=== PATIENT | male | born 1945 | race Caucasian/White ===

== ENCOUNTER 2023-09-15 16:25 | Emergency (ER) | payer MEDICARE ==
[2023-09-15 16:42] VITALS: RESP 18; TEMP 98.5
[2023-09-15] MEDS ORDERED: TORAdol 30 mg Injection ONE (16:49)
[2023-09-15] MEDS: TORAdol 30 mg Injection IM ONE (16:51)
--- NOTE | 2023-09-15 18:23 | ERPHSYRPT ---
- History of Present Illness Source: patient, other (Spouse) Exam Limitations: no limitations Patient Subjective Stated Complaint: C/O intermittent right hip pain for a few weeks. Denies falls or injury. Triage Nursing Assessment: Patient ambulated back to ER with a walker. He is alert and oriented. NO SOB. Skin tone normal. Some BLE edema present. Physician History: 78-year-old male with intermittent right hip pain x 2 to 3 weeks. Patient denies injury. He saw his PCP was started on tramadol for the pain but is worse today. The pain increased today when he was getting up off the toilet. He denies fever, dysuria, and hematuria. Timing/Duration: other ( 2 to 3 weeks worse to the) Context: unknown Hip Pain Location: hip (R) Severity of Pain-Max: moderate Severity of Pain-Current: moderate Modifying Factors: Improves With: movement ( movement and weight-bear) Symptoms prior to fall: other ( right hip pain) Associated Symptoms: denies symptoms Allergies/Adverse Reactions: Penicillins Allergy (Verified 09/15/23 16:31) Sulfa (Sulfonamide Antibiotics) Allergy (Verified 09/15/23 16:31) Hx Tetanus, Diphtheria Vaccination/Date Given: Yes Hx Influenza Vaccination/Date Given: Yes Hx Pneumococcal Vaccination/Date Given: Yes Immunizations Up to Date: Yes Travel Risk - International Travel Have you traveled outside of the country in past 3 weeks: No - Emerging Infectious Disease Are you exhibiting symptoms associated with any current EIDs: No - Review of Systems Constitutional: No Symptoms Eyes: No Symptoms Ears, Nose, & Throat: No Symptoms Respiratory: No Symptoms Cardiac: No Symptoms Abdominal/Gastrointestinal: No Symptoms Genitourinary Symptoms: No Symptoms Skin: No Symptoms Neurological: No Symptoms Psychological: No Symptoms Endocrine: No Symptoms Hematologic/Lymphatic: No Symptoms Immunological/Allergic: No Symptoms - Past Medical History Pertinent Past Medical History: Yes Cardiac History: High Cholesterol Musculoskeletal History: Osteoarthritis GI Medical History: GERD, Irritable Bowel - Past Surgical History Past Surgical History: Yes Other Surgical History: miniscus repiar left knee - Social History Smoking Status: Never smoker Exposure to second hand smoke: No Drug Use: none - Social Determinants of Health Will the patient participate in the screening: Yes Do you worry about a steady place to live?: No Do you have any problems with any of the following?: No known problems In the past 12 months,have you had to go without utilities?: No Transportation Issues: No Has anyone in your support network made you feel unsafe?: No Have you or anyone in your house had to go without enough: No - Nursing Vital Signs Nursing Vital Signs: Initial Vital Signs Pulse Rate 72 09/15/23 16:31 Respiratory Rate 16 09/15/23 16:31 Blood Pressure 133/74 09/15/23 16:31 O2 Sat by Pulse Oximetry 96 09/15/23 16:31 Pain Scale Pain Intensity 0 within normal limits - Physical Exam General Appearance: no apparent distress ( no apparent distress but in some pain) Eye Exam: PERRL/EOMI Ears, Nose, Throat Exam: normal ENT inspection Neck Exam: normal inspection, non-tender, supple, full range of motion, No meningismus, No mass, No Brudzinski, No Kernig's Respiratory Exam: normal breath sounds, lungs clear Cardiovascular Exam: regular rate/rhythm, normal heart sounds, normal peripheral pulses, capillary refill <2 sec, No murmur Gastrointestinal Exam: soft, normal bowel sounds, No tenderness Back Exam: normal inspection, CVA tenderness (Mild right lateral superior and posterior iliac crest tenderness palpation), No normal range of motion, No vertebral tenderness Extremity Exam: normal inspection, normal range of motion, pelvis stable, other Neurologic Exam: alert, oriented x 3, cooperative, assistant dean II-XII nml as tested, normal mood/affect, sensation nml Skin Exam: normal color, warm, dry, No rash Lymphatic Exam: No adenopathy SpO2 Interpretation: normal SpO2: 95 O2 Delivery: Room Air - Course Nursing assessment & vital signs reviewed: Yes - CT Exams Pelvis CT Interpretation: Tele-radiologist Report (Bilateral sacroiliitis,5 patient fracture age-indeterminate) Ordered Tests: Active Orders 24 hr Category Date Time Status PELVIS WITHOUT CONTRAST [CT] Stat Exams 09/15/23 16:38 Completed Medication Summary Discontinued Medications Generic Name Dose Route Start Last Admin Trade Name Freq PRN Reason Stop Dose Admin Ketorolac Tromethamine 30 mg 09/15/23 16:37 09/15/23 16:51 Ketorolac Tromethamine 30 Mg/Ml Inj IM 09/15/23 16:38 30 mg STAT ONE Administration Ketorolac Tromethamine Confirm 09/15/23 16:49 Ketorolac Tromethamine 30 Mg/Ml Inj Administered 09/15/23 16:50 Dose 30 mg .ROUTE .STK-MED ONE - Progress Progress: improved Progress Note: 09/15/23 19:26 Nursing note and vital signs thoroughly reviewed. No further housing insecurity noted. CT result of patient's pelvis thoroughly reviewed and shared with patient/. Patient given 30 mg IM Toradol with improvement in his pain. Discharged in stable condition with prescription for Blanchard 5/325 sent to [facility] in [place], and patient advised to use a stool softener with the Blanchard, not take the tramadol when taking Blanchard, and not to drive when taking the Blanchard. Prescription for Norflex was also sent to patient's pharmacy. He was advised to return to ER for increasing pain, temperature greater 100.5, or any dysuria/hematuria. Patient voiced comprehensive discharge instructions. 09/15/23 19:27 Counseled pt/family regarding: diagnosis, need for follow-up, rad results Medical Desision Making - Independent Historian Additional History obtained from: Spouse - Diagnostic Testing Radiological Interpretation: Teleradiologist Report - Risk of complications The pt has a mod risk of morbidity or mortality based on: Need for prescription drug management - Departure Departure Disposition: Home Clinical Impression: Sacroiliitis, Compression fracture of L5 vertebra Condition: Stable Critical Care Time: No Referrals: DICK MIKE MD [Primary Care Provider] - Follow up/PCP as directed Instructions: Sacroiliac Joint Pain (DC), Vertebral Compression Fracture ED Additional Instructions: Follow-up with your family MD on Monday or Monday Blanchard every 6 hours as needed for pain- be sure to use stool softener with the Blanchard Norflex as needed for muscle relaxation Return to ER for increasing pain or temperature greater 100.[address] the Blanchard or the Norflex Prescriptions: Hydrocodone/Acetaminophen [Hydrocodone-Acetamin 5-325 mg] 1 tab PO Q6HPRN PRN #7 tablet MDD 4 PRN Reason: Pain Orphenadrine Citrate 100 mg [Norflex 100 MG Tablet] 100 mg PO BID PRN PRN #12 tab PRN Reason: Pain
[2023-09-15 18:29] VITALS: BP 127/71; PULSE 79
--- NOTE | 2023-09-15 18:34 | XRAY ---
CLINICAL HISTORY: R hip pain COMPARISON: None TECHNIQUE: CT scan of the pelvis was performed without IV contrast. Coronal and sagittal reconstructive images were obtained. One of the following dose reduction techniques were utilized for this exam: Automated exposure control, adjustment of the mA and/or kV according to patient size, use of iterative reconstruction. CTDI: 43.27mGy, DLP: 1554.85mGy*cm. FINDINGS: Both hip joints are normal. The hip joints reveal normal rounded contour. No evidence of articular collapse. The joint spaces are normal. No loose bodies. There is no evidence of joint effusion. L5 vertbral; body show compression fracture evident by loss of vertbeal height. Lower lumbar spondylosis also noted Bilateral sacroiliac joints degenerative sacroiliitis. No lytic or sclerotic bone lesions. The visualized soft tissues are normal. Scanned part of pelvic cavity show sigmoid diverticular disease. Appendix is normal. IMPRESSION: 1. Lower lumbar spondylosis. 2. Compression fracture of L5. 3. Bilateral sacroiliitis. 4. No fracture. Electronically Signed by: Rupa Hensley MD. (09/15/2023 18:30:05 EDT)
[2023-09-15 18:54] VITALS: O2SAT 95
== END 2023-09-15 19:08 | disposition home or self-care (01) ==
LOC: ED 16:25
DX: M46.1 Sacroiliitis, not elsewhere classified (principal); M48.56XA Collapsed vertebra, not elsewhere classified, lumbar region, initial encounter for fracture; M25.551 Pain in right hip; E78.5 Hyperlipidemia, unspecified; Z79.891 Long term (current) use of opiate analgesic; Z79.899 Other long term (current) drug therapy
CPT/HCPCS: 72192; 96372; 99283; J1885

== ENCOUNTER 2023-09-30 09:54 | Emergency (ER) | payer MEDICARE ==
[2023-09-30 10:05] VITALS: BP 125/85; PULSE 86; TEMP 97.1; O2SAT 97
--- NOTE | 2023-09-30 10:21 | ERPHSYRPT ---
- History of Present Illness Time Seen by Provider: 09/30/23 10:10 Source: patient Exam Limitations: no limitations Patient Subjective Stated Complaint: pt cut his left thumb with a utility knife Triage Nursing Assessment: Pt brought to the ER by his , vitals wnl, pulses normal, approx 2 cm laceration to the distal end of the left thumb, bleeding controlled, denies any other injuries Physician History: 78yo m presents via private vehicle for laceration of left thumb. Pt was in his garage cutting tile when the knife slipped and hit his thumb. Reports it has been bleeding for roughly 30min, has slowed significantly. Blade was straight edge. Pt has full ROM in thumb, sensation is intact, minimal bleeding appreciated. Pt had tetanus shot last year. Timing/Duration: today Quality: painful Severity: mild Location: hands Allergies/Adverse Reactions: Penicillins Allergy (Verified 09/15/23 16:31) Sulfa (Sulfonamide Antibiotics) Allergy (Verified 09/15/23 16:31) Home Medications: Tamsulosin HCl 0.4 mg [Flomax 0.4 MG] 0.4 mg PO DAILY 09/30/23 [History] Hx Tetanus, Diphtheria Vaccination/Date Given: Yes Hx Influenza Vaccination/Date Given: Yes Hx Pneumococcal Vaccination/Date Given: Yes Travel Risk - International Travel Have you traveled outside of the country in past 3 weeks: No - Emerging Infectious Disease Are you exhibiting symptoms associated with any current EIDs: No - Review of Systems Constitutional: No Symptoms Respiratory: No Symptoms Cardiac: No Symptoms Skin: Other (thumb laceration) - Past Medical History Pertinent Past Medical History: Yes Cardiac History: High Cholesterol Musculoskeletal History: Osteoarthritis GI Medical History: GERD, Irritable Bowel - Past Surgical History Past Surgical History: Yes Other Surgical History: miniscus repiar left knee - Social History Smoking Status: Never smoker Exposure to second hand smoke: No Drug Use: none - Social Determinants of Health Will the patient participate in the screening: Yes Do you worry about a steady place to live?: No Do you have any problems with any of the following?: No known problems In the past 12 months,have you had to go without utilities?: No Transportation Issues: No Has anyone in your support network made you feel unsafe?: No Have you or anyone in your house had to go without enough: No - Nursing Vital Signs Nursing Vital Signs: Initial Vital Signs Temperature 97.1 F 09/30/23 09:57 Pulse Rate 86 09/30/23 09:57 Blood Pressure 125/85 09/30/23 09:57 O2 Sat by Pulse Oximetry 97 09/30/23 09:57 Pain Scale Pain Intensity 2 - Physical Exam General Appearance: no apparent distress Respiratory Exam: normal breath sounds, airway intact, No respiratory distress Cardiovascular Exam: regular rate/rhythm, normal heart sounds, normal peripheral pulses Skin Exam: laceration (2cm laceration of left medial thumb, distal aspect, linear, well approximated, hemostatic, no skin flap) SpO2: 97 Procedures - Laceration/Wound Repair Left Anterior Distal Volar Hand Time of Procedure: 10:20 Wound Length (cm): 2 Wound's Depth, Shape: superficial, linear Wound Explored: clean Irrigated: Yes Hibiclens Prep: Yes Progress: 09/30/23 10:33 closed w/ dermabond hemostatic dressing applied - Progress Progress: improved Progress Note: 09/30/23 10:31 wound closed w/ dermabond, dressing applied no indication for abx coverage plan to dc home keep area clean/dry limit activity w/ left hand as possible keep bandage on wound for 3-4 days return to ED if: develop drainage from wound, wound opens and begins bleeding again, develop fevers Counseled pt/family regarding: diagnosis Medical Desision Making - Diagnostic Testing Diagnostic test were ordered, analyzed, and reviewed by me: No - Risk of complications Minimal Risk: Minimal risk of morbidity - Departure Departure Disposition: Home Clinical Impression: Laceration of left thumb Qualifiers: Encounter type: initial encounter Damage to nail status: without damage Foreign body presence: without foreign body Qualified Code(s): S61.012A - Laceration without foreign body of left thumb without damage to nail, initial encounter Condition: Stable Critical Care Time: No Referrals: DICK MIKE MD [Primary Care Provider] - Follow up/PCP as directed Instructions: Laceration Repair With Glue ED Additional Instructions: plan to dc home keep area clean/dry limit activity w/ left hand as possible keep bandage on wound for 3-4 days return to ED if: develop drainage from wound, wound opens and begins bleeding again, develop fevers
== END 2023-09-30 10:27 | disposition home or self-care (01) ==
LOC: ED 09:54
DX: S61.012A Laceration without foreign body of left thumb without damage to nail, initial encounter (principal); W26.0XXA Contact with knife, initial encounter; Y92.015 Private garage of single-family (private) house as the place of occurrence of the external cause; E78.5 Hyperlipidemia, unspecified; Z79.899 Other long term (current) drug therapy
CPT/HCPCS: 12001; 99281

== ENCOUNTER 2023-10-07 14:52 | Emergency (ER) | payer MEDICARE ==
[2023-10-07 15:17] VITALS: BP 122/72; PULSE 95; RESP 17; TEMP 97.6; O2SAT 99
--- NOTE | 2023-10-07 15:34 | ERPHSYRPT ---
- History of Present Illness Time Seen by Provider: 10/07/23 15:28 Source: patient Exam Limitations: no limitations Patient Subjective Stated Complaint: Patient is here for a wound check of his left thumb laceration. Patient states that the glue from last Monday has worn away and the steristrips are gone. He thinks it might need to be glued again. Triage Nursing Assessment: Patient ambulated back to ER without difficulties. he is alert and oriented. Bandaid removed from left thumb. A well-approximated laceration present under bandaid. No current drainage. No s/s of infection to area. Physician History: 78yo m presents for laceration of left thumb, pt was seen in ED on 09/29 and laceration was repaired w/ dermabond. Pt reports part of the wound has broken open slightly and is not completely healed. Pt denies any drainage from the wound or fevers. Wound is hemostatic and well healing. Timing/Duration: week(s) (1) Location: hands Allergies/Adverse Reactions: Penicillins Allergy (Verified 10/07/23 15:11) Sulfa (Sulfonamide Antibiotics) Allergy (Verified 10/07/23 15:11) Home Medications: Tamsulosin HCl 0.4 mg [Flomax 0.4 MG] 0.4 mg PO DAILY 09/30/23 [History] Hx Tetanus, Diphtheria Vaccination/Date Given: Yes Hx Influenza Vaccination/Date Given: Yes Hx Pneumococcal Vaccination/Date Given: Yes Immunizations Up to Date: Yes Travel Risk - International Travel Have you traveled outside of the country in past 3 weeks: No - Emerging Infectious Disease Are you exhibiting symptoms associated with any current EIDs: No - Review of Systems Constitutional: No Symptoms Respiratory: No Symptoms Cardiac: No Symptoms Skin: Skin Lesions - Past Medical History Pertinent Past Medical History: Yes Cardiac History: High Cholesterol Musculoskeletal History: Osteoarthritis GI Medical History: GERD, Irritable Bowel - Past Surgical History Past Surgical History: Yes Other Surgical History: miniscus repair left knee - Social History Smoking Status: Never smoker Exposure to second hand smoke: No Drug Use: none - Social Determinants of Health Will the patient participate in the screening: Yes Do you worry about a steady place to live?: No Do you have any problems with any of the following?: No known problems In the past 12 months,have you had to go without utilities?: No Transportation Issues: No Has anyone in your support network made you feel unsafe?: No Have you or anyone in your house had to go without enough: No - Nursing Vital Signs Nursing Vital Signs: Initial Vital Signs Temperature 97.6 F 10/07/23 15:13 Pulse Rate 95 H 10/07/23 15:13 Respiratory Rate 17 10/07/23 15:13 Blood Pressure 122/72 10/07/23 15:13 O2 Sat by Pulse Oximetry 99 10/07/23 15:13 Pain Scale Pain Intensity 0 - Physical Exam Skin Exam: other (1.5cm well healing laceration on left thumb, anterior aspect, minimal amount of separation of wound if traction applied) SpO2: 99 - Progress Progress Note: 10/07/23 15:34 dermabond applied to wound wrapped w/ non-stick gauze and coband plan to dc home, instructed to use oil based ointments to promote moisture keep wrapped in bandage when using left hand Medical Desision Making - Diagnostic Testing Diagnostic test were ordered, analyzed, and reviewed by me: No - Risk of complications Minimal Risk: Minimal risk of morbidity - Departure Departure Disposition: Home Clinical Impression: Laceration of left thumb Qualifiers: Encounter type: subsequent encounter Damage to nail status: without damage Foreign body presence: without foreign body Qualified Code(s): S61.012D - Laceration without foreign body of left thumb without damage to nail, subsequent encounter Condition: Stable Critical Care Time: No Referrals: DICK MIKE MD [Primary Care Provider] - Follow up/PCP as directed Additional Instructions: dermabond applied to wound wrapped w/ non-stick gauze and coband plan to dc home, instructed to use oil based ointments to promote moisture keep wrapped in bandage when using left hand
== END 2023-10-07 15:46 | disposition home or self-care (01) ==
LOC: ED 14:52
DX: S61.012D Laceration without foreign body of left thumb without damage to nail, subsequent encounter (principal); E78.5 Hyperlipidemia, unspecified; Z79.899 Other long term (current) drug therapy
CPT/HCPCS: 99281